=== PATIENT | female | born 1945 ===

== ENCOUNTER 2022-06-21 05:50 | Day surgery (SDC) | payer OTHER ==
[~2022-06-21 05:50] MED LIST: ADVAIR HFA 115/12 GM IH; GRALISE600 MG PO; MILLIPRED5 MG PO; PEPCID AC10 MG PO; PROAIR RESPICL90 MCG IH; VASOTEC2.5 MG PO; [UNRECOGNIZED DRUG - OTHER]
[2022-06-21] MEDS ORDERED: RECTICARE30 GM TOP (10:13)
[2022-06-21] MEDS ORDERED: PERCOCET 5-3251 EACH PO (10:13)
== END 2022-06-21 15:15 | disposition home or self-care (01) ==
LOC: CIR.AMB 05:50
PROVIDERS: ATTEND Surgery
DX: D01.3 Carcinoma in situ of anus and anal canal (principal); A63.0 Anogenital (venereal) warts; Z20.822 Contact with and (suspected) exposure to COVID-19

== ENCOUNTER 2022-07-26 05:50 | Day surgery (SDC) | payer OTHER ==
[~2022-07-26] VITALS: Ht 157.5 cm; Wt 53.5 kg
[~2022-07-26 05:50] MED LIST changes: +PERCOCET 5-3251 EACH PO; +RECTICARE30 GM TOP
[2022-07-26] MEDS ORDERED: TRAM1TAB98 PO (14:31)
== END 2022-07-26 17:05 | disposition home or self-care (01) ==
LOC: CIR.AMB 05:50
PROVIDERS: ATTEND Surgery
DX: C21.1 Malignant neoplasm of anal canal (principal); Z20.822 Contact with and (suspected) exposure to COVID-19